=== PATIENT | male | born 1995 | race Caucasian/White ===

== ENCOUNTER 2016-12-07 07:04 | Day surgery (SDC) | payer OTHER ==
[~2016-12-07] VITALS: Ht 172.7 cm; Wt 87.2 kg
[2016-12-07 07:40] VITALS: Ht 172.7 cm; Wt 87.2 kg
[2016-12-07] MEDS ORDERED: no home meds (07:43)
[2016-12-07 07:50] VITALS: BP 110/61; PULSE 59; RESP 12
[2016-12-07] MEDS ORDERED: MIDAZOLAM 1 MG/ML 2 ML INJ ONE ×2 (08:50)
[2016-12-07] MEDS ORDERED: FENTAnyl 50 MCG/ML VIAL ONE (08:51)
[2016-12-07 09:03] VITALS: BP 97/58; RESP 18
--- NOTE | 2016-12-08 09:08 | GILP ---
DATE OF PROCEDURE: PROCEDURE: Screening colonoscopy to rule out colon polyps. PREOPERATIVE DIAGNOSIS: The patient presenting with a strong family history of colon cancer. Alisha thakur still alive. Uncle of colon cancer. Because of this, colonoscopy is performed to rule out c olon polyps as a preventive measure. POSTOPERATIVE DIAGNOSIS: Normal examination. DESCRIPTION OF PROCEDURE: After informed written consent was obtained, the patient was asked to lie on the left lateral side. The patient was given 3 mg Versed and 50 mcg of fentanyl as intravenous anesthesia. When the patient became somnolent, the Olympus video colonoscope was introduced into the rectum and scope was advanced all the way to the cecum. The entire colon appeared perfectly normal with no pablo yps and no mucosal abnormality. Endoscope at this time was withdrawn. Retroflexion was performed. No hemorrhoids were noted and the procedure was terminated. PLAN: Recommend repeat colonoscopy in 3 years. Dictated By: KAYLA MCGRAW/LISA Conf#: [id number] DID#: [id number] CC: [facility];*EndCC*
== END 2016-12-07 10:45 | disposition home or self-care (01) ==
LOC: GIL 07:04
PROVIDERS: ATTEND Internal Medicine Gastroenterology
DX: Z12.11 Encounter for screening for malignant neoplasm of colon (principal)
CPT/HCPCS: 45378; J2250; J3010; Z7610